=== PATIENT | female | born 1990 | race Caucasian/White ===

== ENCOUNTER 2022-02-21 16:16 | Inpatient (IN) ==
[2022-02-21 19:01] LABS: Basophils % 0.2 % (0.0-0.8); Hematocrit 37.4 VOL% (35.7-47.0); Hemoglobin 11.6 GM/DL (12.0-16.0); Immature Granulocytes % 1.1 %; Lymphocytes # 2.4 10*3/uL (1.4-4.0); Lymphocytes % 13.7 % (21.3-54.2); Mean Corpuscular Volume 68.5 FL (87-102); Mean Platelet Volume 11.1 FL (9.6-12.0); Monocytes # 2.2 10*3/uL (0.11-0.8); Monocytes % 12.5 % (1.7-12.7); Neutrophils % 72.5 % (38.7-73.9); Platelet Count 235 T/CUMM (130-400); Red Blood Count 5.46 MC/CUMM (3.8-5.5); Red Cell Distribution Width 16.4 % (9.3-17.3); White Blood Count 17.4 T/CUMM (4-12)
[2022-02-21 19:19] LABS: Albumin 2.6 G/DL (3.4-5.0); Bilirubin,Total 0.5 MG/DL (0.20-1.00); Calcium 9.2 MG/DL (8.5-10.1); Osmolality,Calculated 258.8 MOS/KG (273-304); Potassium 2.8 MMOL/L (3.5-5.1); Total Protein 8.5 G/DL (6.4-8.2)
[2022-02-21] MEDS ORDERED: VANCOMYCIN INJ 1,500 MG in SODIUM CHLORIDE 0.9% 500 ML IV STA (20:00)
[2022-02-21] MEDS ORDERED: PIPERACILLIN/TAZOBACTAM 3,375 MG in SODIUM CHLORIDE 0.9% 100 ML IV STA (20:01)
[2022-02-21 20:24] LABS: Metamyelocytes 3 %
[2022-02-21] MEDS ORDERED: ONDANSETRON 4 MG/2 ML VIAL IV PRN (20:27)
[2022-02-21] MEDS ORDERED: GLUCAGON 1 MG VIAL IM PRN (20:27)
[2022-02-21] MEDS ORDERED: DEXTROSE 50% 25 GM/50 ML VIAL IV PRN (20:27)
[2022-02-21] MEDS ORDERED: SODIUM CHLORIDE 0.9% 1,000 ML IV SCH (20:30)
[2022-02-21 20:36] LABS: Lymphocytes 10 % (20-55); Myelocytes 2 %; Total Cells Counted 100
[2022-02-21 20:37] LABS: Atypical Lymphocytes 1+; Microcytosis Slight
[2022-02-21] MEDS ORDERED: MAGNESIUM SULF RIDER 2 GM/50 ML PREMIX IV PRN (20:52)
[2022-02-21] MEDS ORDERED: MAGNESIUM SULF RIDER 4 GM/100 ML PREMIX IV PRN (20:52)
[2022-02-21] MEDS ORDERED: POTASSIUM CHLORIDE 20 MEQ TABLET PO PRN (20:52)
[2022-02-21] MEDS ORDERED: DEXTROSE 10% 250 ML BAG IV PRN (21:14)
[2022-02-22] MEDS: ACETAMINOPHEN 325 MG TABLET PO PRN ×4 (01:40→22:07)
[2022-02-22] MEDS: PIPERACILLIN/TAZOBACTAM 3,375 MG in SODIUM CHLORIDE 0.9% 100 ML IV SCH ×3 (05:21→22:10)
[2022-02-22 05:39] LABS: Basophils % 0.2 % (0.0-0.8); Eosinophils % 0.1 % (0.00-10.9); Hematocrit 34.2 VOL% (35.7-47.0); Hemoglobin 10.6 GM/DL (12.0-16.0); Immature Granulocytes % 1.1 %; Immature Granulocytes Absolute 0.19 #; Lymphocytes # 3.3 10*3/uL (1.4-4.0); Mean Corpuscular Volume 68.7 FL (87-102); Mean Platelet Volume 11.4 FL (9.6-12.0); Monocytes # 1.7 10*3/uL (0.11-0.8); Neutrophils % 68.6 % (38.7-73.9); Platelet Count 195 T/CUMM (130-400); Red Blood Count 4.98 MC/CUMM (3.8-5.5); Red Cell Distribution Width 15.9 % (9.3-17.3); White Blood Count 16.6 T/CUMM (4-12)
[2022-02-22 06:00] LABS: Albumin 2.4 G/DL (3.4-5.0); Bilirubin,Total 0.5 MG/DL (0.20-1.00); Osmolality,Calculated 268.1 MOS/KG (273-304); Potassium 2.7 MMOL/L (3.5-5.1); Total Protein 7.9 G/DL (6.4-8.2)
[2022-02-22 06:08] LABS: Lymphocytes 14 % (20-55); Microcytosis 2+; Platelet Estimate Normal; Total Cells Counted 100
[2022-02-22 06:09] LABS: Hypochromia 2+
[2022-02-22] MEDS: POTASSIUM CHLORIDE 20 MEQ TABLET PO SCH ×3 (07:57→12:25)
[2022-02-22] MEDS ORDERED: BISOPROLOL/HCTZ 5-6.25 MG TABLET PO SCH (09:00)
[2022-02-22] MEDS: PANTOPRAZOLE 40 MG TABLET PO SCH (10:22)
[2022-02-22] MEDS: NYSTATIN POWDER 15 GM BOTTLE TOP SCH ×3 (10:23→22:08)
[2022-02-22] MEDS ORDERED: POLYETHYLENE GLYCOL POWDER 17 GM PACK PO PRN (10:59)
[2022-02-22] MEDS ORDERED: VANCOMYCIN INJ 1,000 MG in SODIUM CHLORIDE 0.9% 250 ML IV ONE (11:29)
[2022-02-22] MEDS: DOCUSATE SODIUM 100 MG CAPSULE PO SCH ×2 (12:25→22:08)
[2022-02-22] MEDS: VANCOMYCIN INJ 1,750 MG in SODIUM CHLORIDE 0.9% 500 ML IV SCH (13:31)
[2022-02-22] MEDS: FUROSEMIDE 40 MG/4 ML VIAL IV SCH (17:19)
[2022-02-22] MEDS: QUEtiapine 100 MG TABLET PO SCH (22:00)
[2022-02-22] MEDS: ENOXAPARIN 40 MG/0.4 ML SYRINGE SUBCUT SCH ×2 (22:10)
[2022-02-23] MEDS: VANCOMYCIN INJ 1,750 MG in SODIUM CHLORIDE 0.9% 500 ML IV SCH ×2 (00:43→13:44)
[2022-02-23] MEDS: PIPERACILLIN/TAZOBACTAM 3,375 MG in SODIUM CHLORIDE 0.9% 100 ML IV SCH ×3 (04:45→21:36)
[2022-02-23 05:10] LABS: Basophils % 0.3 % (0.0-0.8); Eosinophils % 0.3 % (0.00-10.9); Hematocrit 32.7 VOL% (35.7-47.0); Hemoglobin 10.1 GM/DL (12.0-16.0); Immature Granulocytes Absolute 0.14 #; Lymphocytes # 2.6 10*3/uL (1.4-4.0); Lymphocytes % 19.4 % (21.3-54.2); Mean Corpuscular HGB Conc 30.9 GM/DL (32-36); Mean Corpuscular Volume 69.4 FL (87-102); Mean Platelet Volume 11.4 FL (9.6-12.0); Monocytes % 7.7 % (1.7-12.7); Neutrophils % 71.3 % (38.7-73.9); Platelet Count 220 T/CUMM (130-400); Red Blood Count 4.71 MC/CUMM (3.8-5.5); Red Cell Distribution Width 16.1 % (9.3-17.3); White Blood Count 13.4 T/CUMM (4-12)
[2022-02-23 05:15] LABS: Albumin 2.4 G/DL (3.4-5.0); Bilirubin,Total 0.4 MG/DL (0.20-1.00); Calcium 9.4 MG/DL (8.5-10.1); Osmolality,Calculated 272.8 MOS/KG (273-304); Potassium 3.5 MMOL/L (3.5-5.1); Total Protein 7.7 G/DL (6.4-8.2)
[2022-02-23 05:25] LABS: Band Neutrophils 1 % (0-10); Eosinophils 1 % (0-10); Lymphocytes 21 % (20-55); Platelet Estimate Adequate; Total Cells Counted 100
[2022-02-23 05:26] LABS: Hypochromia 1+; Microcytosis 1+
[2022-02-23] MEDS: POTASSIUM CHLORIDE 10 MEQ TABLET PO SCH (08:08)
[2022-02-23] MEDS: DOCUSATE SODIUM 100 MG CAPSULE PO SCH ×2 (08:08→21:36)
[2022-02-23] MEDS: NYSTATIN POWDER 15 GM BOTTLE TOP SCH ×3 (08:08→21:46)
[2022-02-23] MEDS: FUROSEMIDE 40 MG/4 ML VIAL IV SCH ×2 (08:08→17:11)
[2022-02-23] MEDS: PANTOPRAZOLE 40 MG TABLET PO SCH (08:08)
[2022-02-23] MEDS: QUEtiapine 100 MG TABLET PO SCH (21:36)
[2022-02-23] MEDS: ENOXAPARIN 40 MG/0.4 ML SYRINGE SUBCUT SCH (21:36)
[2022-02-24] MEDS: VANCOMYCIN INJ 1,750 MG in SODIUM CHLORIDE 0.9% 500 ML IV SCH ×2 (04:48→18:35)
[2022-02-24 05:35] LABS: Basophils % 0.2 % (0.0-0.8); Eosinophils # 0.1 10*3/uL (0.0-0.87); Eosinophils % 0.4 % (0.00-10.9); Hematocrit 30.9 VOL% (35.7-47.0); Hemoglobin 9.7 GM/DL (12.0-16.0); Immature Granulocytes % 1.6 %; Immature Granulocytes Absolute 0.26 #; Lymphocytes # 3.6 10*3/uL (1.4-4.0); Lymphocytes % 21.5 % (21.3-54.2); Mean Corpuscular HGB Conc 31.4 GM/DL (32-36); Mean Platelet Volume 11.2 FL (9.6-12.0); Monocytes # 1.2 10*3/uL (0.11-0.8); Monocytes % 7.1 % (1.7-12.7); Neutrophils % 69.2 % (38.7-73.9); Platelet Count 264 T/CUMM (130-400); Red Blood Count 4.48 MC/CUMM (3.8-5.5); Red Cell Distribution Width 16.1 % (9.3-17.3); White Blood Count 16.6 T/CUMM (4-12)
[2022-02-24 05:59] LABS: Albumin 2.3 G/DL (3.4-5.0); Bilirubin,Total 0.4 MG/DL (0.20-1.00); Calcium 8.6 MG/DL (8.5-10.1); Osmolality,Calculated 272.8 MOS/KG (273-304); Potassium 3.3 MMOL/L (3.5-5.1); Total Protein 7.8 G/DL (6.4-8.2)
[2022-02-24] MEDS: PIPERACILLIN/TAZOBACTAM 3,375 MG in SODIUM CHLORIDE 0.9% 100 ML IV SCH ×3 (06:05→20:50)
[2022-02-24] MEDS: POTASSIUM CHLORIDE RIDER 10 MEQ/100 ML PREMIX IV SCH ×4 (10:47→22:36)
[2022-02-24] MEDS: NYSTATIN POWDER 15 GM BOTTLE TOP SCH ×3 (10:49→20:50)
[2022-02-24] MEDS ORDERED: MIDAZOLAM 2 MG/2 ML VIAL ONE (12:14)
[2022-02-24] MEDS ORDERED: LIDOCAINE 2% 5 ML VIAL ONE (12:14)
[2022-02-24] MEDS ORDERED: propofoL 200 MG/20 ML VIAL IV ONE (12:14)
[2022-02-24] MEDS ORDERED: fentaNYL 100 MCG/2 ML VIAL ONE (12:14)
[2022-02-24] MEDS ORDERED: ONDANSETRON 4 MG/2 ML VIAL ONE (12:17)
[2022-02-24] MEDS ORDERED: LACTATED RINGERS 1,000 ML IV SCH (12:30)
[2022-02-24] MEDS ORDERED: BUPIVACAINE MPF 0.25% 10 ML VIAL ONE (12:32)
[2022-02-24] MEDS ORDERED: DEXAMETHASONE 4 MG/1 ML VIAL ONE (13:06)
[2022-02-24] MEDS ORDERED: SEVOFLURANE 1 UNIT/15 MINUTE INH ONE (13:09)
[2022-02-24] MEDS: PANTOPRAZOLE 40 MG TABLET PO SCH (14:49)
[2022-02-24] MEDS: POTASSIUM CHLORIDE 10 MEQ TABLET PO SCH (14:49)
[2022-02-24] MEDS: DOCUSATE SODIUM 100 MG CAPSULE PO SCH ×2 (14:49→20:49)
[2022-02-24] MEDS: QUEtiapine 100 MG TABLET PO SCH (20:49)
[2022-02-24] MEDS: ENOXAPARIN 40 MG/0.4 ML SYRINGE SUBCUT SCH (20:49)
[2022-02-25] MEDS: PIPERACILLIN/TAZOBACTAM 3,375 MG in SODIUM CHLORIDE 0.9% 100 ML IV SCH ×3 (04:33→21:50)
[2022-02-25] MEDS: VANCOMYCIN INJ 1,750 MG in SODIUM CHLORIDE 0.9% 500 ML IV SCH (04:33)
[2022-02-25 04:58] LABS: Basophils # 0.1 10*3/uL (0.0-0.2); Basophils % 0.3 % (0.0-0.8); Eosinophils % 0.2 % (0.00-10.9); Hemoglobin 8.9 GM/DL (12.0-16.0); Immature Granulocytes % 2.7 %; Immature Granulocytes Absolute 0.42 #; Lymphocytes # 3.3 10*3/uL (1.4-4.0); Lymphocytes % 21.5 % (21.3-54.2); Mean Corpuscular HGB Conc 30.7 GM/DL (32-36); Mean Corpuscular Volume 70.4 FL (87-102); Mean Platelet Volume 10.9 FL (9.6-12.0); Monocytes # 1.2 10*3/uL (0.11-0.8); Neutrophils % 67.3 % (38.7-73.9); Platelet Count 286 T/CUMM (130-400); Red Blood Count 4.12 MC/CUMM (3.8-5.5); Red Cell Distribution Width 16.1 % (9.3-17.3); White Blood Count 15.5 T/CUMM (4-12)
[2022-02-25 05:17] LABS: Alanine Aminotransferase 73 U/L (13-56); Albumin 2.1 G/DL (3.4-5.0); Alkaline Phosphatase 71 U/L (45-117); Aspartate Amino Transferase 43 U/L (0-37); Bilirubin,Total < 0.39 MG/DL (0.20-1.00); Blood Urea Nitrogen 12 MG/DL (7-18); Calcium 8.9 MG/DL (8.5-10.1); Carbon Dioxide 28 MMOL/L (21-32); Chloride 105 MMOL/L (98-107); Glucose 81 MG/DL (74-106); Osmolality,Calculated 275.5 MOS/KG (273-304); Sodium 139 MMOL/L (136-145); Total Protein 7.1 G/DL (6.4-8.2)
[2022-02-25] MEDS: PANTOPRAZOLE 40 MG TABLET PO SCH (09:16)
[2022-02-25] MEDS: NYSTATIN POWDER 15 GM BOTTLE TOP SCH ×3 (09:16→22:08)
[2022-02-25] MEDS: DOCUSATE SODIUM 100 MG CAPSULE PO SCH ×2 (09:16→21:52)
[2022-02-25] MEDS: ENOXAPARIN 40 MG/0.4 ML SYRINGE SUBCUT SCH (21:52)
[2022-02-25] MEDS: QUEtiapine 100 MG TABLET PO SCH (21:54)
[2022-02-26] MEDS: PIPERACILLIN/TAZOBACTAM 3,375 MG in SODIUM CHLORIDE 0.9% 100 ML IV SCH ×2 (04:35→14:19)
[2022-02-26 04:44] LABS: Basophils % 0.3 % (0.0-0.8); Eosinophils # 0.1 10*3/uL (0.0-0.87); Eosinophils % 0.8 % (0.00-10.9); Hematocrit 30.7 VOL% (35.7-47.0); Hemoglobin 9.3 GM/DL (12.0-16.0); Immature Granulocytes % 4.6 %; Immature Granulocytes Absolute 0.58 #; Lymphocytes # 3.2 10*3/uL (1.4-4.0); Lymphocytes % 24.9 % (21.3-54.2); Mean Corpuscular HGB Conc 30.3 GM/DL (32-36); Mean Corpuscular Volume 69.8 FL (87-102); Mean Platelet Volume 10.7 FL (9.6-12.0); Monocytes # 0.7 10*3/uL (0.11-0.8); Monocytes % 5.8 % (1.7-12.7); Neutrophils % 63.6 % (38.7-73.9); Platelet Count 352 T/CUMM (130-400); Red Cell Distribution Width 16.3 % (9.3-17.3); White Blood Count 12.7 T/CUMM (4-12)
[2022-02-26 05:09] LABS: Hypochromia 1+; Lymphocytes 15 % (20-55); Microcytosis 1+; Platelet Estimate Adequate; Total Cells Counted 100
[2022-02-26 05:10] LABS: Alanine Aminotransferase 80 U/L (13-56); Albumin 2.1 G/DL (3.4-5.0); Alkaline Phosphatase 72 U/L (45-117); Aspartate Amino Transferase 44 U/L (0-37); Bilirubin,Total < 0.39 MG/DL (0.20-1.00); Blood Urea Nitrogen 14 MG/DL (7-18); Carbon Dioxide 26 MMOL/L (21-32); Chloride 109 MMOL/L (98-107); Glucose 110 MG/DL (74-106); Osmolality,Calculated 284.1 MOS/KG (273-304); Potassium 3.9 MMOL/L (3.5-5.1); Sodium 142 MMOL/L (136-145); Total Protein 7.1 G/DL (6.4-8.2)
[2022-02-26] MEDS: NYSTATIN POWDER 15 GM BOTTLE TOP SCH (09:50)
[2022-02-26] MEDS: DOCUSATE SODIUM 100 MG CAPSULE PO SCH (09:50)
[2022-02-26] MEDS: PANTOPRAZOLE 40 MG TABLET PO SCH (09:50)
[2022-02-26] MEDS ORDERED: FLUCONAZOLE 100 MG TABLET PO SCH (11:00)
[2022-02-26 11:34] VITALS: BP 132/90
== END 2022-02-26 13:45 | disposition home health service (06) | DRG 603 ==
LOC: N.ED 16:16 → SUATTDRO 20:29 → N.EDINP 20:29 → N.5E 02-22 00:40
PROVIDERS: ADMIT Internal Medicine; ATTEND Internal Medicine